=== PATIENT | male | born 1955 | race American Indian/Alaskan Native ===

== ENCOUNTER 2019-10-24 07:55 | Emergency (ER) | payer OTHER ==
--- NOTE | 2019-10-24 09:10 | Emergency Department Report ---
HPI - General Chief Complaint: Eye Problems Time Seen by Provider: 10/24/19 08:53 - HPI HPI: 64-year-old male presents to the emergency department with complaint of some redness or bleeding to the medial portion of his left eye. The patient woke up with this way this morning and says it was not there when he went to sleep. He says there is a slight throbbing sensation to that area. However he denies any vision change, blurry vision, itching, drainage. He has a past medical history of hypertension. His primary care physician is Dr. Iyer in [place]. He wears glasses. He has not taken anything for her symptoms prior to arrival today. ED Past Medical Hx - Past Medical History Previous Medical History?: Yes Hx Hypertension: Yes Additional medical history: chronic sinus - Surgical History Past Surgical History?: No - Social History Smoking Status: Never Smoker Substance Use Type: None ED Review of Systems ROS: Stated complaint: L EYE BLEEDING Other details as noted in HPI Comment: All other systems reviewed and negative Constitutional: denies: chills, fever Eyes: other (redness of bleeding to eye). denies: eye discharge, vision change Neurological: denies: headache, weakness Physical Exam - Physical Exam Vital Signs: Vital Signs 10/24/19 10/24/19 08:02 09:07 Temperature 98.2 F Pulse Rate 72 Respiratory 16 14 Rate Blood Pressure 154/79 Blood Pressure 154/79 [Left] O2 Sat by Pulse 96 99 Oximetry Physical Exam: GENERAL: The patient is well-developed well-nourished. HENT: Normocephalic. Atraumatic. Patient has moist mucous membranes. EYES: Extraocular motions are intact. Pupils equal reactive to light bilaterally. There is a subconjunctival hemorrhage to the medial half of the left eye. Patient deferred visual acuity exam. NECK: Supple. Trachea is midline. ABDOMEN: There is no abdominal distention. SKIN: Skin is warm and dry. NEURO: The patient is awake, alert, and oriented. The patient is cooperative. The patient has no focal neurologic deficits. Normal speech. MUSCULOSKELETAL: There is no tenderness or deformity. There is no evidence of acute injury. ED Course Vital Signs 10/24/19 10/24/19 08:02 09:07 Temperature 98.2 F Pulse Rate 72 Respiratory 16 14 Rate Blood Pressure 154/79 Blood Pressure 154/79 [Left] O2 Sat by Pulse 96 99 Oximetry - Consultations Consultation #1: 10/24/19 09:58 I spoke to an opthalmologist, Dr Srini Schmitt, and sent a picture of the patient's eye. He agrees it appears consistent with a subconjunctival hemorrhage. ED Medical Decision Making - Medical Decision Making This patient presents with a subconjunctival hemorrhage of the medial half of the left eye. No significant eye pain. No vision change. Vital signs stable. Patient given a referral for ophthalmology. Critical Care Time: No Critical care attestation.: If time is entered above; I have spent that time in minutes in the direct care of this critically ill patient, excluding procedure time. ED Disposition Clinical Impression: Subconjunctival hemorrhage Qualifiers: Laterality: left Qualified Code(s): H11.32 - Conjunctival hemorrhage, left eye Disposition: TO HOME OR SELFCARE Is pt being admited?: No Condition: Stable Instructions: Subconjunctival Hemorrhage (ED) Additional Instructions: Please follow-up with your primary care physician in the next few days. I am also giving you a referral for a local sample collector, Dr. Srini Schmitt, to follow up regarding your subconjunctival hemorrhage. Please return to the emergency department immediately with any worsening of your symptoms, eye pain, vision change, or with any acute distress. Referrals: SRINI SCHMITT MD [Staff Physician] - 2-3 Days Time of Disposition: 09:10
[2019-10-24 09:36] VITALS: BP 115/78
== END 2019-10-24 10:24 | disposition home or self-care (01) ==
LOC: ED 07:55
DX: H11.32 Conjunctival hemorrhage, left eye (principal); I10 Essential (primary) hypertension; L98.8 Other specified disorders of the skin and subcutaneous tissue
CPT/HCPCS: 99283